=== PATIENT | male | born 1985 | race Caucasian/White ===

== ENCOUNTER 2017-04-19 00:10 | Emergency (ER) | payer OTHER ==
[~2017-04-19] VITALS: Ht 180.3 cm; Wt 88.5 kg
[2017-04-19 00:27] VITALS: BP 157/95
[2017-04-19 00:59] LABS: APPEARANCE,URINE CLEAR (CLEAR); BILIRUBIN,URINE NEGATIVE (NEGATIVE); BLOOD, URINE NEGATIVE (NEGATIVE); COLOR,URINE YELLOW (YELLOW); LEUKOCYTE ESTERASE ,URINE NEGATIVE (NEGATIVE); NITRITE, URINE NEGATIVE (NEGATIVE); UGLUCOSE NEGATIVE (NEGATIVE)
--- NOTE | 2017-04-19 01:20 | NUR ---
31/M CAME IN W C/O DYSURIA X 4DAYS.PT REPORTS CLEAR PENILE DISCHARGE AND HISTORY OF CHLAMYDIA WITH SIMILAR SYMPTOMS. DENIES FEVER/CHILLS, REPORTS NAUSEA, DENIES VOMITTING/DIRRHEA. PMH: ASTHMA NO OTC
--- NOTE | 2017-04-19 01:22 | NUR ---
Dr. Myrick evaluating patient at bedside.
[2017-04-19] MEDS ORDERED: cefTRIAXone 250 MG in LIDOCAINE MPF 1% - **ER/OR** 0.9 ML IM ONE (01:25)
[2017-04-19] MEDS ORDERED: AZITHROMYCIN 250 MG TAB PO ONE (01:25)
[2017-04-19 01:50] VITALS: BP 108/76
--- NOTE | 2017-04-19 01:50 | NUR ---
Patient discharged with v/s stable. Written and verbal after care instructions given and explained. Patient verbalized understanding. Ambulatory with steady gait. All questions addressed prior to discharge. Advised to follow up with PMD.
[2017-04-21 10:12] LABS: CHLAMYDIA TRACHOMATIS AMP DNA Negative (Negative)
== END 2017-04-19 01:50 | disposition home or self-care (01) ==
LOC: MED 00:10
DX: R30.0 Dysuria (principal); J45.909 Unspecified asthma, uncomplicated; F12.10 Cannabis abuse, uncomplicated
CPT/HCPCS: 36415; 81003; 96372; 99284; J0696; J2001; 87491

== ENCOUNTER 2017-04-30 02:40 | Emergency (ER) | payer OTHER ==
[~2017-04-30] VITALS: Ht 180.3 cm; Wt 88.7 kg
[2017-04-30 02:46] VITALS: BP 132/90
--- NOTE | 2017-04-30 02:53 | NUR ---
PT AMBULATED TO BED 12
--- NOTE | 2017-04-30 03:00 | NUR ---
PATIENT PRESENTS TO ED WITH ANXIETY. PT C/O ANXIETY, ADMITS TO USING METHAMPHEPHETAMINE EARLIER TODAY, USES EVERY OTHER DAY. MED HX: SUBSTANCE ABUSE/ASTHMA. DENIES N/V/D; SKIN IS PINK/WARM/DRY; AAOX4 WITH EVEN AND STEADY GAIT; LUNGS CLEAR BL; HR EVEN AND REGULAR; PT DENIES ANY FEVER, CP, SOB, OR COUGH AT THIS TIME; PATIENT STATES PAIN OF 0/10 AT THIS TIME; VSS; PATIENT POSITIONED FOR COMFORT; HOB ELEVATED; BEDRAILS UP X2; BED DOWN. ER MD MADE AWARE OF PT STATUS.
--- NOTE | 2017-04-30 03:01 | NUR ---
Patient being evaluated by physician at bedside.
[2017-04-30] MEDS ORDERED: LORazepam 1 MG TAB PO ONE (03:05)
[2017-04-30 03:34] VITALS: BP 130/88
== END 2017-04-30 03:35 | disposition home or self-care (01) ==
LOC: MED 02:40
DX: F41.8 Other specified anxiety disorders (principal); R03.0 Elevated blood-pressure reading, without diagnosis of hypertension; J45.909 Unspecified asthma, uncomplicated
CPT/HCPCS: 99284

== ENCOUNTER 2017-07-06 17:39 | Emergency (ER) | payer MEDICAID, OTHER ==
[~2017-07-06] VITALS: Ht 182.9 cm; Wt 86.2 kg
[2017-07-06 18:14] VITALS: BP 152/92
[2017-07-06 20:00] LABS: APPEARANCE,URINE CLEAR (CLEAR); BILIRUBIN,URINE NEGATIVE (NEGATIVE); BLOOD, URINE NEGATIVE (NEGATIVE); COLOR,URINE YELLOW (YELLOW); LEUKOCYTE ESTERASE ,URINE NEGATIVE (NEGATIVE); NITRITE, URINE NEGATIVE (NEGATIVE); UGLUCOSE NEGATIVE (NEGATIVE)
--- NOTE | 2017-07-06 20:04 | NUR ---
PT AMBULATED TO ER BED 9
--- NOTE | 2017-07-06 20:05 | NUR ---
31/M CAME IN ED, C/O 5/10 BURNING WHILE URINATING, X1 MONTH. ASSOCIATED WITH SUPRAPUBIC PAIN AND LOWER BACK PAIN. PT REPORTS SLIGHT NAUSEA, DENIES VOMITING, DIARRHEA. PT DENIES GENITAL RASHES OR DISCHARGE, C/O SLIGHT ITCHING AT TIMES. PT REPORTS MULTIPLE PARTNERS, DENIES USING PROPER PROTECTION. SKIN IS INTACT, PINK/WARM/DRY; AAOX4, PERRL, WITH EVEN AND STEADY GAIT; LUNGS CLEAR BL, BREATHING UNLABORED; HR EVEN AND REGULAR, BL PERIPHERAL PULSES PRESENT; BS ACTIVE X4, NO TENDERNESS TO PALPATION; PT DENIES ANY FEVER, CP, SOB, OR COUGH AT THIS TIME; VSS; PATIENT POSITIONED FOR COMFORT; HOB ELEVATED; BEDRAILS UP X2; BED DOWN.
--- NOTE | 2017-07-06 23:00 | NUR ---
PT RESTING COMFORTABLY IN BED, RR EVEN AND UNLABORED. PT DENIES PAIN, ALL NEEDS MET AT THIS TIME.
[2017-07-07] MEDS ORDERED: cefTRIAXone 250 MG in LIDOCAINE MPF 1% - **ER/OR** 0.9 ML IM ONE ×2
[2017-07-07] MEDS ORDERED: AZITHROMYCIN 250 MG TAB PO ONE
[2017-07-07] MEDS ORDERED: cefTRIAXone 250 MG VIAL ONE (00:11)
[2017-07-07] MEDS ORDERED: LIDOCAINE 1% 50 ML ONE (00:15)
[2017-07-07 00:34] VITALS: BP 135/85
--- NOTE | 2017-07-07 00:38 | NUR ---
Patient discharged with v/s stable. Written and verbal after care instructions given and explained. Patient alert, oriented and verbalized understanding of instructions. Ambulatory with steady gait. All questions addressed prior to discharge. ID band removed. Patient advised to follow up with PMD. Rx of DOXYCYCLINE 100MG, OTC TYLENOL 500MG given. Patient educated on indication of medication including possible reaction and side effects. Opportunity to ask questions provided and answered.
[2017-07-09 06:27] LABS: CHLAMYDIA TRACHOMATIS AMP DNA Negative (Negative)
== END 2017-07-07 00:38 | disposition home or self-care (01) ==
LOC: MED 17:39
DX: N34.2 Other urethritis (principal); M54.5 Low back pain
CPT/HCPCS: 36415; 81003; 87491; 96372; 99284; J0696; J2001

== ENCOUNTER 2022-06-11 17:29 | Emergency (ER) | payer MEDICAID ==
[~2022-06-11] VITALS: Ht 180.3 cm; Wt 95.3 kg
[2022-06-11 17:46] VITALS: BP 135/88
[2022-06-11] MEDS ORDERED: ALBUTEROL 0.083% 2.5 MG/3 ML NEBU INH ONE (17:55)
[2022-06-11] MEDS ORDERED: predniSONE 20 MG TAB PO ONE (17:55)
[2022-06-11] MEDS ORDERED: ALBUTEROL SULFATE/IPRATROPIU 3 ML SOL IH ONE (17:55)
--- NOTE | 2022-06-11 18:05 | NUR ---
PT C/O SOB W/LT SIDE CHEST/RIB PAIN X 3HRS. SAFETY MAINTAINED.
[2022-06-11] MEDS ORDERED: ALBU0.0912 INH (18:17)
[2022-06-11] MEDS ORDERED: IBUP-2213 PO (18:17)
[2022-06-11] MEDS ORDERED: PRED20TA5 PO (18:17)
[2022-06-11 18:49] VITALS: BP 132/82
--- NOTE | 2022-06-11 18:50 | NUR ---
Patient discharged with v/s stable. Written and verbal after care instructions given. Patient alert, oriented and verbalized understanding of instructions. Ambulatory with steady gait. All questions addressed prior to discharge. ID band removed. Patient advised to follow up with PMD. Rx of ALBUTEROL SULFATE,IBUPROFEN, PREDNISONE given. Opportunity to ask questions provided and answered.
--- NOTE | 2022-06-11 18:53 | NUR ---
The patient's care was reviewed and supervised by [facility], RN.
== END 2022-06-11 18:50 | disposition home or self-care (01) ==
LOC: MED 17:29
DX: J45.901 Unspecified asthma with (acute) exacerbation (principal); F17.200 Nicotine dependence, unspecified, uncomplicated; F15.90 Other stimulant use, unspecified, uncomplicated; Z98.890 Other specified postprocedural states
CPT/HCPCS: 94640; 99283; J7512; J7613

== ENCOUNTER 2023-04-02 14:04 | Emergency (ER) | payer MEDICAID ==
[~2023-04-02] VITALS: Ht 182.9 cm; Wt 96.2 kg
[~2023-04-02 14:04] MED LIST: ALBU0.0912 INH; IBUP-2213 PO; PRED20TA5 PO
[2023-04-02 14:25] VITALS: BP 121/79; PULSE 127; RESP 20; TEMP 98.5; O2SAT 98
[2023-04-02] MEDS: KETOROLAC 30 MG/ML VIAL IM ONE (15:14)
[2023-04-02] MEDS: DEXAMETHASONE 10 MG/ML VIAL IM ONE (15:15)
[2023-04-02] MEDS: LIDOCAINE 5% 1 EA PATCH TP ONE (15:18)
[2023-04-02] MEDS ORDERED: IBUP-2213 PO (15:38)
[2023-04-02] MEDS ORDERED: LID5T TP (15:38)
[2023-04-02 15:56] VITALS: PULSE 110; RESP 18; O2SAT 98
== END 2023-04-02 15:56 | disposition home or self-care (01) ==
LOC: MED 14:04
DX: G89.29 Other chronic pain (principal); M54.50 Low back pain, unspecified; J45.909 Unspecified asthma, uncomplicated; Z79.899 Other long term (current) drug therapy
CPT/HCPCS: 96372; 99284; J1100; J1885